=== PATIENT | female | born 1945 | race Caucasian/White ===

== ENCOUNTER → 2023-12-30 13:54 | Emergency (ER) | payer OTHER, SELFPAY ==
[2023-12-30 14:00] VITALS: BP 162/92
[2023-12-30 14:21] VITALS: BP 144/81
--- NOTE | 2023-12-30 14:27 | CON.NEURO4 ---
Addendum entered and electronically signed by Merrick Vásquez MD 12/30/23 15:29:
Studies reviewed.
I have personally examined the patient. I reviewed and agree with the MANAGER SAFE's Note.
My addenda:
Awake, alert, interactive. No acute distress.
Speech intact.
Follows 2-step requests w/o difficulty. No tremor.
Extra-ocular movements grossly intact.
Facial movements full and symmetric. Hearing intact to normal conversational volume.
Normal UE movements bilaterally.
Neck: full ROM.
Chest: no dyspnea
Heart: no JVD
Ext: (-) Clubbing, (-) Cyanosis, (-) Edema
IMPRESSIONS/RECOMMENDATIONS:
Abrupt onset of change in mental status most likely due to transient global amnesia
Appreciate consultation from Dr. Rodriges
Supportive care
Check MRI of brain for completeness sake and to ensure there is no structural mimic
Check blood work for potential metabolic causes
Provide thiamine to ensure no deficiency producing symptomatology although unlikely
Will continue to follow patient.
Original Note:
Documented by User: Jaqueline Martinez NP 12/30/23 15:12
Consultation - Neurology 4
-
CONSULTING PHYSICIAN: Merrick Vásquez MD
REFERRING PHYSICIAN: ER/Idris Rodriges PA-C
DICTATED BY: RUTH Gupta
DATE/TIME OF REQUEST: 12/30/23
DATE/TIME OF CONSULTATION: 12/30/23
Reason for Consultation: Stroke Alert
History of Present Illness:
This is a 78-year-old female who has presented to the hospital with with report of confusion. Patient's family at bedside report that the patient left her daughter's house at [address] She texted her daughter at 1100 to say she made it
home. Around 1300, she called her son and told him that she couldn't remember anything. She was unable to answer his questions and kept asking him repetitive questions. Her family called EMS and a stroke alert was activated on arrival to the ER. CT
head was obtained on arrival and is negative for any acute abnormalities. NIHSS is 2 for inability to answer orientation questions. She is unable to recall the current month, year, her age, or any recent events including the passing of her
in March 2023, but she can provide the names of her children. She is not a candidate for TNK/IAT due to low NIHSS and symptoms more supportive of transient global amnesia. Patient denies any headache, dizziness, speech/swallow difficulty, vision
changes, numbness, nausea, weakness, chest pain, palpitations, and shortness of breath. Patient's family report that 20 years ago she fell and hit her head on concrete and had retrograde amnesia lasting 10-12 hours. They report that her symptoms
with that event were identical to how she is acting now. It is unclear if she has hit her head recently. She lives independently, drives, and manages her own finances at baseline. She was not taking any blood-thinning medications.
Past Medical History: colon polyp
Surgical History: colon resection
Family History: Reviewed and noncontributory.
Social History: Denies tobacco and illicit drug use. Rare alcohol.
Allergies: No known allergies.
Home Medications: See below.
Review of Symptoms:
Patient denies any fever, headache, chest pain, shortness of breath, GI or symptoms.
�Per the HPI.�All systems are reviewed negative except above.
Physical Exam:
The patient is afebrile, abdomen is nondistended, breathing is unlabored, skin is warm and dry, no edema.
NIH Stroke Scale:
I performed the NIH stroke scale on the patient on 12/30/23 at 1430. The patient scored 2 points on the NIH stroke scale assessment, which were assigned as follows: See below.
Neurologic Examination:
The patient is awake, alert and oriented to person only, not time, location, or situation. She is able to follow commands and answer questions appropriately. There is no aphasia or dysarthria. On cranial nerve assessment, pupils are 3 mm bilateral,
round and reactive to light and accommodation. Visual stephenson are full. Extraocular movements are intact. Facial sensations are intact and bilaterally symmetrical, there is no facial asymmetry. Hearing is intact bilaterally to normal conversation
volume. Tongue palate and uvula are midline. Sternocleidomastoid strengths are full bilaterally. Motor strengths are 5/5 bilateral upper and lower extremities on medical research Paoli scale. There is no drift or involuntary movement noted. Deep
tendon reflexes are 2+ bilateral upper and lower extremities and Babinski is absent bilaterally. There was no extinction noted on double simultaneous stimulation. Coordination is intact by finger to nose bilaterally.
Lab Results: See below.
Neuro Imaging:
1. CT Head 12/30/23: No acute intracranial abnormality. ASPECTS score: 10.
Differentials for the patient's presentation include:
1. Patient's symptoms highly supportive of transient global amnesia.
2. TIA or small stroke less likely.
Patient has the following risk factors for their symptoms: Previous amnesia, age
IV Tenecteplase/IAT candidacy: She is not a candidate for TNK/IAT due to low NIHSS and symptoms more supportive of transient global amnesia.
Recommendations:
-MRI brain noncontrast ordered/pending.
-Checking blood work for metabolic abnormalities, see orders.
-Neurological checks per unit guidelines.
-Provide thiamine 100mg PO x3 days.
-Provide patient with a stroke education packet.
Discussed patient care with: Dr. Vásquez, the patient, patient's family
Vital Signs and Labs
-
Vital Signs and Labs:
Vital Signs
Temp Pulse Resp BP Pulse Ox
98.1 F 95 18 162/92 97
12/30/23 14:00 12/30/23 14:00 12/30/23 14:00 12/30/23 14:00 12/30/23 14:00
Lab Results
12/30/23 14:25
NIH Stroke Score
Subsequent NIH Scale
Date of Subsequent NIH Scale: 12/30/23
Time of Subsequent NIH Scale: 14:30
NIH Stroke Score
Level of Consciousness: 0 - Alert
LOC Questions: 2-Neither correct
LOC Commands: 0-Performs both correctly
Best Horizontal Gaze: 0-Normal
Visual Stephenson: 0=Normal, no visual loss
Facial Palsy: 0=Normal, symmetrical
Motor - Right Arm: 0=No drift 10 seconds
Motor - Left Arm: 0=No drift 10 seconds
Motor - Right Le-No drift 5 seconds
Motor - Left Le-No drift 5 seconds
Limb Ataxia: 0-Absent
Sensation: 0-Normal
Best Language: 0-No aphasia
Dysarthria: 0-Normal
Extinction and Inattention: 0-No abnormality
Total Score:: 2
Modified Woods (mRS) Score
Modified Ant Scale (mRS): No symptoms
Score: 0

Documented by User: Merrick Vásquez MD 12/30/23 15:23
NIH Stroke Score
NIH Stroke Score
Total Score:: 2
Modified Ant (mRS) Score
Score: 0
[2023-12-30 14:31] LABS: Glucose - Point of Care 143 mg/dl (70-99)
[2023-12-30 14:36] VITALS: BP 144/85
[2023-12-30 14:40] LABS: % Basophils 0.8 % (0-2); % Eosinophils 0.8 % (0-6); % Immature Granulocytes 0.2 % (0-0.5); % Lymphocytes 21.6 % (20.5-51.1); % Monocytes 6.5 % (1.7-9.3); % Neutrophils 70.1 % (42.2-75.2); Absolute Lymphocytes 1.1 10^3/uL (1.2-3.4); Absolute Monocytes 0.3 10^3/uL (0.1-0.6); Absolute Neutrophils 3.4 10^3/uL (1.4-6.5); Hematocrit 38.8 % (37.0-47.0); Hemoglobin 13.8 g/dL (12.0-16.0); Mean Corp Hgb Conc. 35.6 g/dL (33.0-37.0); Mean Corpuscular Hgb 31.8 pg (27.0-31.0); Mean Corpuscular Volume 89.4 fL (81.0-99.0); Mean Platelet Volume 9.7 fL (7.4-10.4); Nucleated Red Blood Cells % 0 %; Platelet Count 209 10^3/uL (130-400); Red Blood Cell Count 4.34 10^6/uL (4.20-5.40); Red Cell Dist. Width 12.5 % (11.5-14.5); White Blood Cell Count 4.9 10^3/uL (4.8-10.8)
--- NOTE | 2023-12-30 14:42 | ED.CVA ---
History of Present Illness
General
Chief Complaint: CVA/TIA Symptoms
Time Seen by Provider: 12/30/23 14:08
Onset of Stroke Symptoms
Onset of symptoms known: Yes
Date of onset of symptoms: 12/30/23
Time of onset of symptoms: 13:00
Travel History
Have you had any contact with someone who has COVID-19?: No
Do you have any symptoms of coronavirus? Fever > 100 degrees, chills, cough, shortness of breath, sore throat, loss of taste or smell, muscle aches, or headache?: No
History of Present Illness
History of Present Illness:
Patient presents to the emergency department with amnesia. Symptoms started suddenly around 1 PM. There is no prior injury. Patient is very repetitive with her questioning and does not provide history. Daughter provides history for the patient.
Daughter states she has an episode of a similar transient global amnesia years ago after head injury but has completely recovered since then.
Phy Exam
Physical Exam
Physical Exam:
GENERAL APPEARANCE: NAD, well developed/ well nourished
EYES lids/conjunctiva normal
EARS/NOSE/THROAT Mucous membranes moist, uvula midline without oral pharyngeal erythema, exudate or swelling
HEAD/NECK normocephalic atraumatic, neck is supple.
RESPIRATORY respiratory effort normal, speaks in full sentences, no accessory muscle use. Lungs clear to auscultation without rhonchi, wheezes, rales
CARDIAC Regular rate and rhythm, no edema.
ABDOMINAL Soft, ND/NT. No pulsatile masses on exam, rebound tenderness, Virgen sign or pain over Mcburney's point.
MUSCLES/EXTREMITIES No abnormal range of motion, no swelling.
SKIN Warm, pink and dry. No rashes
NEUROLOGICAL Speech is clear and appropriate. Normal level of consciousness. Cranial nerves II through through 12 intact. Patient oriented to place and person, unsure of the date or month. Speech is clear and coherent. Repetitive loss of
memory. 5/5 strength in all extremities. SILT throughout
PSYCH Normal mood and affect. Judgement/competence is appropriate
Course
Orders/Labs/Results
Orders:
Orders
12/30/23 14:20
CT Head W/o Cont STROKE ALERT Urgent
Comment:
Reason For Exam: global amnesia
12/30/23 14:21
Electrocardiogram (*1) Stat
Reason for Study: Other
Other Reason for Exam: neuro symptoms
12/30/23 14:24
PTT Urgent
12/30/23 14:25
Cardiovascular Evaluation Urgent
Complete Blood Count/With Diff Urgent
Comprehensive Metabolic Panel Urgent
Erythrocyte Sed Rate Urgent
Comment: ADD ON
Ferritin Urgent
Comment: ADD ON
Folate Urgent
Comment: ADD ON
TSH Reflex To Free T4 Urgent
Comment: ADD ON
Troponin I Urgent
Vitamin B12 Urgent
Comment: ADD ON
Vitamin D, 25-Oh Urgent
12/30/23 14:47
Add On- LAB Routine
Comments:: Please add to today's labs or draw as routine
Tests Added?: TSH reflex, Ferritin, Folate, Vit. B12, ESR, Vit D25
12/30/23 14:53
MR Brain Without Contrast Routine
Comment:
Reason For Exam: confusion, TGA?
Recent pill cam endoscopy?: No
12/30/23 15:11
Patient Education As Directed
Type: Stroke education packet
12/30/23 15:20
Add On- LAB Routine
Tests Added?: lipid panel, hbA1c
12/30/23 15:36
NEUROLOGY CONSULT Urgent
Consulting Provider: Merrick Vásquez
Was physician already notified: Yes
Reason for consult: global amnesia
12/30/23 16:00
Thiamine HCl [Vitamin B1] 100 mg PO DAILY
12/31/23 08:00
Lorazepam [Ativan] 1 mg IV ONCE ONE
01/02/24 11:00
DC Protocol for Telemetry ONCE
Abnormal Lab Results
12/30/23 12/30/23
14:20 14:25
MCH 31.8 H pg
(27.0-31.0)
Absolute Lymphs (auto) 1.1 L 10^3/uL
(1.2-3.4)
BUN 27 H mg/dl
(7-17)
Glucose 127 H mg/dl
(70-99)
Total Cholesterol 237 H mg/dl
(50-199)
Vitamin B12 954 H pg/ml
(239-931)
POC Glucose 143 H mg/dl
(70-99)
12/30/23 14:25
12/30/23 14:25
Vital Signs
Initial and Last Documented VS:
Initial Vital Signs
Temp Pulse Resp BP Pulse Ox
98.1 F 95 18 162/92 97
12/30/23 14:00 12/30/23 14:00 12/30/23 14:00 12/30/23 14:00 12/30/23 14:00
Last Documented Vital Signs
Temp Pulse Resp BP Pulse Ox
98.1 F 87 19 125/67 98
12/30/23 14:00 12/30/23 17:18 12/30/23 17:18 12/30/23 16:00 12/30/23 16:15
*Critical Care Note
Total Time (30-74mins, 75-104mins- exclusive of procedures): Not Applicable
ED Attending Note
ED Attending Note
ED Attending Note:
Patient with global amnesia. No other neurologic deficits. Stroke alert called on arrival. Neurology suspects this is transient global amnesia. No TNK given low NIH stroke score. Will continue to observe.
Stroke alert was called. Assessed by Dr. Vásquez. Recommending observation and MRI rule out stroke. Patient and her family do not want to stay. They want to do outpatient MRI as patient is very claustrophobic with close basis. Offered patient
Ativan. Family declined Wishing to take patient home. I explained the risks including worsening stroke symptoms including coma and . They accepted these risks. Patient also saw hospitalist Dr. Mary barrios was RN CLINICAL REVIEW [facility]. Despite multiple
attempts unable to convince patient and family to stay
-
Portions of this chart may have been created with voice recognition software.� Occasional wrong word or��sound alike� substitutions may have occurred due to the inherent limitations of voice recognition software.
Discharge Plan
Departure
Patient Disposition: Against Medical Advice
Date of Disposition: 12/30/23
Time of Disposition: 15:16
Patient with high blood pressure during this ER visit?: Yes
Discharge Problem:
Global amnesia
Interventions
Interventions:
*Risk Screen - Suicide Last Done: 12/30/23 15:08
*General Assessment Last Done: 12/30/23 15:05
*Neglect/Abuse Screening Last Done: 12/30/23 15:20
ED- Fall Risk Assessment Last Done: 12/30/23 15:08
*ED COVID-19 Vaccine History Last Done: 12/30/23 14:00
*Nursing Disposition Last Done: 12/30/23 17:39
ED- Pulmonary Assessment Last Done: 12/30/23 15:08
ED- Neurological Assessment Last Done: 12/30/23 15:08
ED- Cardiac Assessment Last Done: 12/30/23 15:08
ED Swallowing Screen Last Done: 12/30/23 15:05
[2023-12-30 14:48] LABS: APTT 28.8 Sec (23.4-35.0)
[2023-12-30 14:52] LABS: ALT (SGPT) 18 U/L (0-35); AST (SGOT) 29 U/L (14-36); Albumin 4.4 g/dl (3.5-5.0); Alkaline Phosphatase 97 U/L (38-126); Blood Urea Nitrogen 27 mg/dl (7-17); Calcium 9.7 mg/dl (8.4-10.2); Carbon Dioxide 30 mmol/L (22-30); Chloride 103 mmol/L (98-107); Glucose 127 mg/dl (70-99); Potassium 3.7 mmol/L (3.5-5.1); Sodium 138 mmol/L (135-145); Total Bilirubin 0.5 mg/dl (0.2-1.3); Total Protein 7.5 g/dl (6.3-8.2); eGFR > 60.00
[2023-12-30 15:00] VITALS: BP 139/87
[2023-12-30 15:04] LABS: Troponin I < 0.012 ng/ml
[2023-12-30] MEDS: VITAMIN B1 100 MG PO (15:21)
[2023-12-30 15:23] VITALS: BP 153/60
[2023-12-30 15:26] VITALS: BMI 22.4
[2023-12-30 16:00] VITALS: BP 125/67
[2023-12-30 16:03] LABS: HDL Cholesterol 82 mg/dl; LDL Cholesterol, Calculated 132 mg/dl; Total Cholesterol 237 mg/dl (50-199); Triglyceride 118 mg/dl (10-149); Very Low Density Lipoprotein 23 mg/dl (0-30)
[2023-12-30 16:06] LABS: Erythrocyte Sed Rate 15 mm/hour (0-20)
[2023-12-30 16:26] LABS: Vitamin D, 25-OH*** 43.6 ng/mL (30-80)
[2023-12-30 16:40] LABS: TSH Reflex To Free T4 1.03 uIU/ml (0.47-4.68)
[2023-12-30 16:44] LABS: Ferritin 36.9 ng/ml (11.1-264.0)
[2023-12-30 17:16] LABS: Folate 15.7 ng/ml (2.76-20); Vitamin B12 954 pg/ml (239-931)
== END | disposition left against medical advice (07) ==
LOC: EMR 13:54
PROVIDERS: CONSULT PHYSICIAN Psychiatry & Neurology Neurology; EMERGENCY PHYSICIAN Emergency Medicine
DX: R41.3 Other amnesia (principal); R03.0 Elevated blood-pressure reading, without diagnosis of hypertension
CPT/HCPCS: 99285; 70450; 80053; 80061; 82306; 82607; 82728; 82746; 82962; 84443; 84484; 85025; 85652; 85730; 93005